=== PATIENT | male | born 1955 | race Caucasian/White ===

== ENCOUNTER → 2018-12-13 | Outpatient (CLI) | payer BC ==
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
== END | disposition home or self-care (01) ==
LOC: SLEEP 16:14
PROVIDERS: ATTEND Internal Medicine
DX: G47.33 Obstructive sleep apnea (adult) (pediatric) (principal); R35.1 Nocturia; I10 Essential (primary) hypertension; I25.10 Atherosclerotic heart disease of native coronary artery without angina pectoris; I25.2 Old myocardial infarction; E66.9 Obesity, unspecified; Z98.1 Arthrodesis status; Z79.899 Other long term (current) drug therapy; Z87.891 Personal history of nicotine dependence; Z68.37 Body mass index [BMI] 37.0-37.9, adult; Z87.828 Personal history of other (healed) physical injury and trauma
CPT/HCPCS: 99211

== ENCOUNTER → 2019-11-22 | Outpatient (CLI) | payer MEDICARE, BC ==
--- NOTE | 2019-11-22 16:15 | US ---
EXAMINATION TYPE: US kidneys/renal and bladder DATE OF EXAM: 11/22/2019 COMPARISON: NONE CLINICAL HISTORY: N31.9 Neuromuscular dysfunction of bladder, unspec. Neurogenic bladder, abnormal la bs EXAM MEASUREMENTS: Right Kidney: 13.2 x 5.8 x 5.4 cm Left Kidney: 12.4 x 6.2 x 5.8 cm Right Kidney: Cyst mid/lateral= 1.7 x 1.6 x 2.0 cm. Extrarenal pelvis. No hydronephrosis. Left Kidney: Lobulated contour. Extrarenal pelvis. No hydronephrosis. Bladder: Trabeculated appearance of the urinary bladder barajas Bilateral Jets seen: Yes There is no evidence for hydronephrosis at this point in time. No nephrolithiasis is seen. No kianna s are identified. The urinary bladder is anechoic. Bilateral ureteral jets are seen. IMPRESSION: Trabeculated appearance the urinary bladder wall is in keeping with this patient's histor y of neurogenic bladder. No hydronephrosis of either kidney.
== END | disposition home or self-care (01) ==
LOC: RADUSWWP 15:17
PROVIDERS: ATTEND Urology
DX: N31.9 Neuromuscular dysfunction of bladder, unspecified (principal)
CPT/HCPCS: 76770

== ENCOUNTER 2019-12-19 08:48 | Day surgery (SDC) | payer MEDICARE, BC ==
[2019-12-18 09:21] VITALS: BMI 33.0
[~2019-12-19 08:48] MED LIST: LACTATED RINGERS 1,000 ML IV SCH; LIDOCAINE 1% 20 ML VIAL (10MG/ML) FOR IV START INTRADERMA PRN
[2019-12-19 09:08] VITALS: RESP 18; TEMP 97.8
[2019-12-19] MEDS ORDERED: LACTATED RINGERS 1,000 ML IV ONE (09:09)
[2019-12-19] MEDS ORDERED: PROPOFOL 10 MG/ML 20 ML VIAL IV ONE (10:39)
--- NOTE | 2019-12-19 11:24 | P.PCN ---
Date of Procedure: 12/19/19 Description of Procedure: BRIEF HISTORY: Patient is a 64-year-old male presenting for outpatient colonoscopy for screening for malignant neoplasm of the colon. Does report some recent constipation. Denies any change in caliber of his stool or blood per rectum. Remote history of colonoscopy. No family history of colon cancer. PROCEDURE PERFORMED: Colonoscopy with polypectomy. PREOPERATIVE DIAGNOSIS: Screening for malignant neoplasm colon, remote history of colonoscopy. ESTIMATED BLOOD LOSS: Minimal. IV sedation per Anesthesia. PROCEDURE: After informed consent was obtained, the patient, was brought into the endoscopy unit. IV sedation was administered by Anesthesia under continuous monitoring. Digital rectal examination was normal. Initially the Olympus CF-190 flexible video colonoscope was then inserted in the rectum, gradually advanced into the cecum without any difficulty. Careful examination was performed as the scope was gradually being withdrawn. Ileocecal valve and the appendiceal orifice were visualized and appeared normal. Prep was excellent. Mucosa of the cecum, ascending colon, transverse colon, descending colon, sigmoid colon, and rectum appeared normal. 4 diminutive polyps removed with cold forcep polypectomy 2 polyps measuring 1 and 2 mm in size from the ascending colon, 1 polyp measuring 2 mm in size from the hepatic flexure and one polyp measuring 1 mm in size from the transverse colon. A few scattered sigmoid diverticula noted. Retroflexion was performed in the rectum and no lesions were seen. The patient tolerated the procedure well. IMPRESSION: 4 diminutive polyps removed with cold forcep polypectomy, 2 from the ascending colon, one from the hepatic flexure and one from the transverse colon. Mild sigmoid diverticulosis. RECOMMENDATIONS: Findings of this examination were discussed with the patient and his . Okay to resume diet. Okay to resume medications. Await pathology from polypectomy. Would recommend repeat colonoscopy in 5 years given polypectomies performed, pending pathology from polypectomy.
[2019-12-19 11:28] VITALS: PULSE 68
[2019-12-19 11:37] VITALS: BP 107/73
== END 2019-12-19 11:57 | disposition home or self-care (01) ==
LOC: ORWHC2ENDO 08:48
PROVIDERS: ATTEND Internal Medicine
DX: Z12.11 Encounter for screening for malignant neoplasm of colon (principal); D12.2 Benign neoplasm of ascending colon; D12.3 Benign neoplasm of transverse colon; K57.30 Diverticulosis of large intestine without perforation or abscess without bleeding; Z87.891 Personal history of nicotine dependence; I10 Essential (primary) hypertension; E78.49 Other hyperlipidemia; Z79.899 Other long term (current) drug therapy
CPT/HCPCS: 88305; 45380; J2704

== ENCOUNTER → 2021-09-01 | Outpatient (CLI) | payer MEDICARE, BC | END | disposition home or self-care (01) | LOC: LABPAT 10:26 | PROVIDERS: ATTEND Urology | DX: Z53.9 Procedure and treatment not carried out, unspecified reason (principal) ==

== ENCOUNTER 2021-09-09 10:28 | Day surgery (SDC) | payer MEDICARE, BC ==
[2021-09-01 11:48] LABS: Basophils # (A) 0.1 k/uL (0-0.2); Basophils % (A) 1 %; Eosinophils # (A) 0.5 k/uL (0-0.7); Eosinophils % (A) 4 %; HCT 47.5 % (39.0-53.0); HGB 15.6 gm/dL (13.0-17.5); Lymphocytes # (A) 3.9 k/uL (1.0-4.8); Lymphocytes % (A) 34 %; MCH 30.3 pg (25.0-35.0); MCHC 32.9 g/dL (31.0-37.0); MCV 92.3 fL (80.0-100.0); Monocytes # (A) 0.7 k/uL (0-1.0); Monocytes % (A) 6 %; Neutrophils # (A) 5.9 k/uL (1.3-7.7); Neutrophils % (A) 52 %; Platelet Count 245 k/uL (150-450); RBC 5.15 m/uL (4.30-5.90); RDW 12.7 % (11.5-15.5); WBC 11.5 k/uL (3.8-10.6)
[2021-09-01 11:59] LABS: African American GFR (CKD) >90 (>60 ml/min/1.73 sqM); Anion Gap 8 mmol/L; Blood Urea Nitrogen 15 mg/dL (9-20); Calcium 9.7 mg/dL (8.4-10.2); Carbon Dioxide 22 mmol/L (22-30); Chloride 111 mmol/L (98-107); Glucose 94 mg/dL (74-99); Non-African American GFR(CKD) 88 (>60 ml/min/1.73 sqM); Potassium 4.8 mmol/L (3.5-5.1); Sodium 141 mmol/L (137-145)
[2021-09-06 13:44] VITALS: BMI 35.2
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
[~2021-09-09 10:28] MED LIST changes: +HEPARIN SODIUM,PORCINE/PF 5,000 UNIT/0.5 ML SYRINGE SQ PRN; -LACTATED RINGERS 1,000 ML IV SCH; +LIDOCAINE 1% (10MG/ML) FOR IV START INTRADERMA PRN; -LIDOCAINE 1% 20 ML VIAL (10MG/ML) FOR IV START INTRADERMA PRN; +ONDANSETRON 4 MG/2 ML VIAL IVP PRN
[2021-09-09 11:05] LABS: Glucose,Whole Blood 103 mg/dL (75-99)
[2021-09-09] MEDS: LACTATED RINGERS 1,000 ML IV SCH ×2 (11:09→12:28)
[2021-09-09] MEDS ORDERED: MIDAZOLAM 2 MG/2 ML VIAL IVP ONE (11:54)
[2021-09-09] MEDS ORDERED: HYDROmorphone (PF) 1 MG/ML ONE (12:24)
[2021-09-09] MEDS ORDERED: MIDAZOLAM 2 MG/2 ML VIAL ONE (12:24)
[2021-09-09] MEDS ORDERED: GLYCOPYRROLATE 0.2 MG/ML 2 ML VIAL ONE (12:24)
[2021-09-09] MEDS ORDERED: SUCCINYLCHOLINE CHLORIDE 100 MG/5 ML SYR IV ONE (12:24)
[2021-09-09] MEDS ORDERED: ROCURONIUM 10 MG/ML (5 ML VIAL) IV ONE (12:24)
[2021-09-09] MEDS ORDERED: KETAMINE 10 MG/ML 20 ML VIAL ONE (12:24)
[2021-09-09] MEDS ORDERED: NEOSTIGMINE 1 MG/ML 10 ML VIAL ONE (12:24)
[2021-09-09] MEDS ORDERED: LIDOCAINE 1% INJ 10MG/ML (20 ML MDV) ONE (12:24)
[2021-09-09] MEDS ORDERED: fentaNYL (PF) 50 MCG/ML 2 ML AMP ONE (12:24)
[2021-09-09] MEDS ORDERED: PROPOFOL 10 MG/ML 20 ML VIAL IV ONE (12:24)
[2021-09-09] MEDS ORDERED: BUPIVACAINE (PF) 0.25% 30 ML VIAL SQ ONE (12:50)
[2021-09-09] MEDS ORDERED: LACTATED RINGERS 1,000 ML IV ONE ×2 (15:56→18:33)
--- NOTE | 2021-09-09 16:50 | P.OP ---
Date of Procedure: 09/09/21 Preoperative Diagnosis: Adenocarcinoma of the prostate Postoperative Diagnosis: Same Procedure(s) Performed: Robotic-assisted laparoscopic prostatectomy (RALP), bilateral pelvic lymphadenectomy Anesthesia: ABIEL Surgeon: Carmelo Guerra Research And Development Tester #1: Zhao Ortega Estimated Blood Loss (ml): 150 IV fluids (ml): 1,100 Pathology: other (Prostate, seminal vesicles, bilateral pelvic lymph nodes) Condition: stable Disposition: PACU Indications for Procedure: The patient is a 66-year-old white male with an elevated PSA level of 7.7. He underwent a prostate ultrasound, revealing a prostate volume of 33 mL with a median lobe. 3 of 12 biopsies showed evidence of prostate cancer, [place] 3+4. All 3 positive biopsies were right sided (right lateral mid, right lateral apex, right apex). The patient has a neurogenic bladder secondary to a spinal cord injury, for which he uses and external urinary device. Alternative treatment options were reviewed, and he has elected to undergo a robotic-assisted laparoscopic prostatectomy (RALP) with bilateral pelvic lymphadenectomy. He has been cleared by Cardiology (Dr. Hull). Operative Findings: No evidence of prostatic median lobe. Description of Procedure: The patient was taken in the operating room and placed in the supine position. He was carefully positioned on a beanbag for stability. The abdomen and externa l genitalia were prepped and draped sterilely. A Jimenez catheter was inserted. A wide caliber fossa navicularis urethral stricture was encountered, which was dilated with [place] sounds. The Veress needle was passed through the anterior abdominal wall immediately cephalad to the umbilicus, and insufflation was performed to a pressure of 20 mm Hg. Once insufflation was performed, the Veress needle was removed and a supraumbilical incision was made, through which an 8 mm camera port was placed. Under camera guidance, 3 8 mm robotic ports were placed, 2 on the left and one on the right. A 12 mm port was placed on the right lateral side for use as an assistant clinical director port. A 5 mm port was placed to the right of the camera port for suction. The patient was placed in Trendelenburg position, and docking was then performed to the da Roger system utilizing a 4- arm approach. The abdomen was examined. The sigmoid colon was mobilized out of the pelvis. The peritoneum was incised lateral to the medial umbilical ligaments bilaterally, exposing the pubis. The peritoneum was then incised across the midline, allowing the bladder flap to be taken down. The endopelvic fascia was opened bilaterally, and muscular attachments from the urogenital diaphragm were swept away from the prostate. Bilateral pelvic lymphadenectomies were performed in the standard fashion. The peritoneal incisions were extended in a cephalad direction, and the vas deferens were divided bilaterally. Margins of dissection were the bifurcation of the iliac vessels proximally, the circumflex iliac vein distally, the external iliac artery laterally, and the obturator nerve medially. A combination of sharp and blunt dissection was used. Care was taken to avoid any neurovascular injury, and the use of monopolar electrocautery was avoided immediately adjacent to neurovascular structures. The lymphatic package was clipped distally. No enlarged lymph nodes were encountered. There were no complications. The vesical neck was incised transversely, down to the lumen. The Jimenez catheter was brought out through the anterior vesical neck incision and was used for traction. The patient was noted to have a median lobe. Careful dissection of the posterior aspect of the vesical neck maintained full-thickness of the posterior vesical neck wall removing the median lobe intact. The anterior layer of the Denonvilliers fascia was incised, exposing the vas deferens. Each were isolated and divided. Next, each of the seminal vesicles were dissected away from adjacent tissues, and vascular attachments were cauterized and divided. The posterior leaf of Denonvilliers fascia was incised transversely, allowing entry into the plane between the prostate and rectum. With lateral spreading, this plane was developed down to the apex. This exposed the lateral vascular pedicles bilaterally. The da Roger vessel sealer was used to ligate and divide the vascular pedicles in an antegrade fashion, down to the apex. The remaining apical attachments were swept away from the prostate. The dorsal venous complex was incised, as well as periurethral tissue. At this point, only the urethra remained intact. This was transected immediately distal to the prostatic apex using cold scissors. The specimen was placed within a specimen bag. The dorsal venous complex was sutured using a V-Loc suture in a running fashion. A second V-Loc suture was then used to place the Yoav stitch, incorporating the rhabdosphincter and the edge of Denonvilliers fascia. This allowed the bladder to be taken down to the urethra, leaving the vesical neck immediately adjacent to the urethra. The vesicourethral anastomosis was then performed using a V-Loc suture in a running fashion. The caliber of the vesical neck was greater than the caliber of the urethra, and therefore the anastomosis was performed in a tennis racquet fashion with the redundant bladder closure performed in the anterior midline. After completing the anastomosis, an 18- M[place] Jimenez catheter was placed and approximately 120 mL of 0.9 normal saline were instilled into the bladder. No extravasation of irrigant from the vesicourethral anastomosis was noted. A small amount of oozing was noted from the vascular pedicles, so Surgicel was placed bilaterally. Tisseel was sprayed into the pelvis over the vascular pedicles, dorsal vein, and vesicourethral anastomosis. The patient was returned to the supine position. Undocking was performed, and the specimen bag sutures were passed through the camera port. After removing all the ports and allowing all of the CO2 to be released from the peritoneal cavity, the camera port incision was enlarged to allow removal of the surgical specimen. The fascia of this incision was then closed using 0 PDS suture in a running fashion. Each of the skin incisions were then closed using 4-0 Monocryl suture in a subcuticular fashion. Marcaine was injected at each of the incision sites. Dermabond was applied to each incision. The Jimenez catheter was connected to gravity drainage. All sponge and needle counts were correct. The patient tolerated the procedure well was taken to the recovery room in stable condition.
[2021-09-09] MEDS ORDERED: HYDROmorphone 1 MG/ML 1 ML SYRINGE IVP PRN (16:53)
[2021-09-09] MEDS ORDERED: ACETAMINOPHEN TAB 325 MG TAB PO PRN (16:53)
[2021-09-09] MEDS ORDERED: ONDANSETRON 4 MG/2 ML VIAL IVP PRN (16:53)
[2021-09-09] MEDS: HYDROmorphone 0.5 MG/0.5 ML SYRINGE IVP PRN ×4 (17:04→17:48)
[2021-09-09] MEDS ORDERED: hydrALAZINE HCL 20 MG/ML 1 ML VIAL ONE (17:13)
[2021-09-09] MEDS ORDERED: hydrALAZINE HCL 20 MG/ML 1 ML VIAL IVP ONE (17:16)
[2021-09-09] MEDS: KETOROLAC 30 MG/ML 1 ML VIAL IVP PRN (17:43)
[2021-09-09] MEDS: HEPARIN SODIUM,PORCINE/PF 5,000 UNIT/0.5 ML SYRINGE SQ SCH (19:33)
[2021-09-09] MEDS: carvediloL 12.5 MG TAB PO SCH (19:34)
[2021-09-09] MEDS: DEXTROSE 5%-0.45% NACL 1,000 ML IV SCH (19:34)
[2021-09-10] MEDS: DEXTROSE 5%-0.45% NACL 1,000 ML IV SCH ×2 (00:13→07:53)
[2021-09-10] MEDS: KETOROLAC 30 MG/ML 1 ML VIAL IVP PRN (03:55)
[2021-09-10] MEDS: carvediloL 12.5 MG TAB PO SCH (07:53)
[2021-09-10] MEDS: HEPARIN SODIUM,PORCINE/PF 5,000 UNIT/0.5 ML SYRINGE SQ SCH (07:53)
[2021-09-10 07:57] VITALS: BP 114/70; PULSE 53; RESP 17; TEMP 97
[2021-09-10] MEDS ORDERED: LOSARTAN 50 MG TAB PO SCH (09:00)
[2021-09-10] MEDS ORDERED: SPIRONOLACTONE 25 MG TAB PO SCH (09:00)
[2021-09-10] MEDS ORDERED: ATORVASTATIN 40 MG TAB PO SCH (09:00)
--- NOTE | 2021-09-10 09:36 | P.DS ---
Providers Expected date of discharge: 09/10/21 Attending physician: Cramelo Guerra Primary care physician: Pritesh Nichols - Discharge Diagnosis(es) (1) Malignant neoplasm of prostate Current Visit: No Status: Acute Hospital Course: On the day of admission, the patient underwent an uncomplicated RALP with bilateral pelvic lymphadenectomy. He ambulated the evening of surgery. He was noted to be hypertensive that night, which he attributed to his intolerance of Dilaudid. His blood pressure was normal the morning of discharge, and his only complaint at that time was urinary leakage around the catheter when he coughed. He denied nausea, chest pain, and shortness of breath. On examination, the abdomen was soft and nondistended. The incisions were clean and dry. The Jimenez catheter was draining clear yellow urine. Procedures: Robotic-assisted laparoscopic prostatectomy (RALP) with bilateral pelvic lymphadenectomy and 09/09/2021 Patient Condition at Discharge: Good Plan - Discharge Summary Discharge Rx Participant: Yes New Discharge Prescriptions: New Ciprofloxacin HCl [Cipro] 250 mg PO Q12HR #6 tablet Ketorolac [Toradol] 10 mg PO Q6HR PRN #12 tab PRN Reason: Pain No Action Losartan Potassium 50 mg PO DAILY carvediloL 25 mg PO BID Krill Oil 500 mg PO DAILY Spironolactone [Aldactone] 25 mg PO DAILY Atorvastatin [Lipitor] 40 mg PO DAILY Cholecalciferol [Vitamin D3 (25 Mcg = 1000 Iu)] 25 mcg PO DAILY Aspirin [Adult Low Dose Aspirin EC] 81 mg PO DAILY Discharge Medication List Losartan Potassium 50 mg PO DAILY 12/18/19 [History] carvediloL 25 mg PO BID 12/18/19 [History] Aspirin [Adult Low Dose Aspirin EC] 81 mg PO DAILY 09/06/21 [History] Atorvastatin [Lipitor] 40 mg PO DAILY 09/06/21 [History] Cholecalciferol [Vitamin D3 (25 Mcg = 1000 Iu)] 25 mcg PO DAILY 09/06/21 [History] Krill Oil 500 mg PO DAILY 09/06/21 [History] Spironolactone [Aldactone] 25 mg PO DAILY 09/06/21 [History] Ciprofloxacin HCl [Cipro] 250 mg PO Q12HR #6 tablet 09/10/21 [Rx] Ketorolac [Toradol] 10 mg PO Q6HR PRN #12 tab 09/10/21 [Rx] Follow up Appointment(s)/Referral(s): Carmelo Guerra MD [STAFF PHYSICIAN] - 2 Weeks Activity/Diet/Wound Care/Special Instructions: Discharge home with Jimenez catheter. Instruct patient to use overnight drainage bag as well as urinary leg bag. Okay to shower. Diet as tolerated. No liftin g, driving, or strenuous activity. Reassure patient that abdominal wall ecchymosis and penoscrotal swelling are normal. Instruct patient to begin taking antibiotics one day prior to Jimenez catheter removal. Discharge Disposition: HOME SELF-CARE
== END 2021-09-10 12:55 | disposition home or self-care (01) ==
LOC: OR 10:28 → 6NMEDSUR 16:39 → OR 09-10 12:55
PROVIDERS: ATTEND Urology
DX: N31.9 Neuromuscular dysfunction of bladder, unspecified (principal); E78.5 Hyperlipidemia, unspecified; I10 Essential (primary) hypertension; C61 Malignant neoplasm of prostate; N52.9 Male erectile dysfunction, unspecified; Z79.82 Long term (current) use of aspirin; Z87.891 Personal history of nicotine dependence
CPT/HCPCS: 55866; 88307; 88309; C1762; J2250; J0360; J2710; J0690; J2405; J2001; J3010; J1885 ×2; J1170 ×3; J0330; J2704; J1644 ×2; 80048; 85025; 86850; 86900; 86901